=== PATIENT | male | born 1955 | race Caucasian/White ===

== ENCOUNTER 2022-12-26 06:18 | Day surgery (SDC) | payer MEDICARE, OTHER ==
[2022-12-25 10:43] VITALS: BMI 24.3
[2022-12-26] MEDS ORDERED: Lidocaine 2% MPF 10 ML AMP (For Epidural Use) ONE (07:55)
[2022-12-26] MEDS ORDERED: PROPOFOL 40 ML ONE (07:55)
== END 2022-12-26 09:17 | disposition home or self-care (01) ==
LOC: CSHSDC 06:18
PROVIDERS: ATTEND Internal Medicine Gastroenterology
PROC: 0DJD8ZZ Inspection of Lower Intestinal Tract, Via Natural or Artificial Opening Endoscopic (ICD-10-PCS; principal; 2022-12-26)
DX: K57.30 Diverticulosis of large intestine without perforation or abscess without bleeding (principal); K64.9 Unspecified hemorrhoids; I10 Essential (primary) hypertension; Z79.899 Other long term (current) drug therapy; Z86.010 Personal history of colon polyps
CPT/HCPCS: J2704